=== PATIENT | male | born 1955 | race Caucasian/White ===

== ENCOUNTER 2017-06-18 07:18 | Day surgery (SDC) | payer BC ==
[2017-06-16 10:08] VITALS: BMI 23.2
[2017-06-18] MEDS ORDERED: PROPOFOL 20 ML ONE ×2 (07:21)
[2017-06-18] MEDS ORDERED: LIDOCAINE HCL/PF 2% SDV 5ML VIAL ONE (07:22)
[2017-06-18 07:44] VITALS: TEMP 97.6
[2017-06-18 09:52] VITALS: BP 111/82; PULSE 64
== END 2017-06-18 08:45 | disposition home or self-care (01) ==
LOC: FASU-ENDO 07:18
PROVIDERS: ATTEND Internal Medicine Gastroenterology
PROC: 0DJD8ZZ Inspection of Lower Intestinal Tract, Via Natural or Artificial Opening Endoscopic (ICD-10-PCS; principal; 2017-06-18 07:55)
DX: Z12.11 Encounter for screening for malignant neoplasm of colon (principal)

== ENCOUNTER 2022-09-09 17:19 | Emergency (ER) | payer BC ==
[2022-09-09 17:35] VITALS: BP 147/84; PULSE 71; RESP 18; TEMP 98; BMI 22.1
[2022-09-09] MEDS ORDERED: IBUPROFEN 400 MG TABLET (FP) PO ONE ×2 (18:25→18:48)
[2022-09-09 19:16] LABS: HEMATOCRIT 41.8 % (35.4-49); HEMOGLOBIN 14.9 G/dL (11.7-16.9); MCH 33.6 pg (25.7-33.7); MCHC 35.6 g/dl (32.0-35.9); MEAN CELL VOLUME 94.3 fl (80-96); MEAN PLT VOLUME 6.7 fl (7.5-11.1); PLATELET COUNT 223.9 10^3/uL (134-434); RBC 4.43 10^6/uL (4.00-5.60); RDW 13.1 % (11.9-15.9)
[2022-09-09 19:17] LABS: BILIRUBIN,TOTAL 0.6 mg/dl (0.2-1); CALCIUM 8.7 mg/dl (8.5-10); CREATININE 0.8 mg/dl (0.55-1.3); TOT PROT 6.4 g/dl (6.4-8.2)
[2022-09-09] MEDS ORDERED: LIDOCAINE 5% TOPICAL PATCH TP ONE (19:59)
[2022-09-09] MEDS ORDERED: diazePAM 5 MG TABLET PO ONE (19:59)
[2022-09-09] MEDS ORDERED: ACETAMINOPHEN 1000 MG/100 ML BAG IVPB ONE (19:59)
[2022-09-09] MEDS ORDERED: ACETAMINOPHEN INJECTION 100 ML IVPB ONE (20:29)
[2022-09-09] MEDS ORDERED: diazePAM 5 MG TABLET ONE (20:30)
[2022-09-09] MEDS ORDERED: LIDOCAINE 5% TOPICAL PATCH ONE (20:30)
[2022-09-09 20:39] LABS: PLATELET ESTIMATE ADEQUATE
[2022-09-09] MEDS ORDERED: LIDOCAINE PATCH REMOVAL MC SCH (22:00)
== END 2022-09-09 21:29 | disposition home or self-care (01) ==
LOC: FER 17:19
DX: M54.2 Cervicalgia (principal)
CPT/HCPCS: 36415; 72050-TC-FY; 80053; 84484; 85027; 93005; 99285-25